=== PATIENT | female | born 1940 | race Caucasian/White ===

== ENCOUNTER 2019-01-06 15:27 | Emergency (ER) | payer OTHER ==
[2019-01-06 15:46] VITALS: BMI 23.3
--- NOTE | 2019-01-06 17:10 | CON.GI ---
Consult Consult Specialty:: GI Referred by:: Jagjit - History of Present Illness History of Present Illness: 78 y/o F with history of large hiatal hernia(EGD by [facility]), gastritis, colonic polyps(colon [address] Henning) was admitted with oprogressive anmeia. She also was in the office becasue of severe constipation and abdominal pain. On rectal examination she was noted to a anorectal stricture,> she had a rectal prolapse repair many years ago. She denies melena nad rectal bleeding - Alcohol/Substance Use Hx Alcohol Use: No - Smoking History Smoking history: Never smoked Aproximately how many cigarettes per day: 20 Home Medications - Allergies Allergies/Adverse Reactions: Allergies Allergy/AdvReac Type Severity Reaction Status Date / Time codeine [Codeine] Allergy Intermediate Verified 01/06/19 15:41 - Home Medications Home Medications: Ambulatory Orders Atorvastatin Ca [Lipitor] 40 mg PO HS 11/09/11 Metoprolol Succinate [Toprol XL -] 25 mg PO HS 11/09/11 Norvasc 5 PO AM 11/09/11 Paroxetine HCl [Paxil -] 25 mg PO AM 11/09/11 Ranitidine HCl [Zantac 75] 150 BID 11/09/11 Physical Exam-GI Vital Signs: Vital Signs Temperature 97.8 F 01/06/19 15:42 Pulse Rate 93 H 01/06/19 15:42 Respiratory Rate 17 01/06/19 15:42 Blood Pressure 176/83 H 01/06/19 15:42 O2 Sat by Pulse Oximetry (%) 95 01/06/19 15:42 Constitutional: Yes: Well Nourished Eyes: Yes: Conjunctiva Clear HENT: Yes: Atraumatic Neck: Yes: Supple Cardiovascular: Yes: Regular Rate and Rhythm Respiratory: Yes: Regular ...Palpate: Yes: Soft. No: Firm/Rigid, Guarding, Hepatomegaly, Mass, Pulsatile Mass, Splenomegaly Problem List - Problems (1) Progressive anemia Assessment/Plan: r/o secondary to large paraesophageal hiatal hernia causing occult gi bleeding R> will need surgical consultation with Dr Rangel Protonix 40mg daily Code(s): D64.9 - ANEMIA, UNSPECIFIED (2) Anorectal stricture Assessment/Plan: R> will need surgical consultation on previous FUA has significant fecal impaction,attempted fecal disimpaction in the office was unsuccessful repeat FuA Code(s): K62.4 - STENOSIS OF ANUS AND RECTUM
--- NOTE | 2019-01-06 17:34 | PDOC ---
Attending Attestation - Resident Resident Name: OakleyRonny - ED Attending Attestation I have performed the following: I have examined & evaluated the patient, The case was reviewed & discussed with the resident, I agree w/resident's findings & plan, Exceptions are as noted - HPI HPI: 01/06/19 17:30 78 F with h/o hiatal hernia, gastritis, anemia, presenting to ED with progressively worsening anemia. Per PMD, pt's Hb went from baseline of 10 to 8 recently. Pt reports that she had another blood test yesterday and was called to come to ED today because her Hb had dropped to 5. Pt denies any CP/SOB/ lightheadedness. Denies N/V/D/abdominal pain. Pt recently had severe constipation that is now resolved after using 3 enemas. - Physicial Exam PE: 01/06/19 17:34 "GENERAL: Awake, alert, and fully oriented, in no acute distress. HEAD: No signs of trauma EYES: PERRLA, EOMI, sclera anicteric, conjunctiva clear ENT: Auricles normal inspection, hearing grossly normal, nares patent, oropharynx clear without exudates. Moist mucosa NECK: Nontender, no stepoffs, Normal ROM, supple, no lymphadenopathy, JVD, or masses LUNGS: Breath sounds equal, clear to auscultation bilaterally. No wheezes, and no crackles HEART: Regular rate and rhythm, normal S1 and S2, no murmurs, rubs or gallops ABDOMEN: Soft, nontender, normoactive bowel sounds. No guarding, no rebound. No masses EXTREMITIES: Normal range of motion, no edema. No clubbing or cyanosis. No cords, erythema, or tenderness NEUROLOGICAL: Cranial nerves II through XII intact. 5/5 strength and sensation in all extremities, Normal speech, normal gait, normal cerebellar function SKIN: Warm, Dry, normal turgor, no rashes or lesions noted. - Medical Decision Making 01/06/19 17:34 78 F with worsening anemia on outpt labs. Pt asymptomatic in ED. Will check stool guaiac to r/o GI bleed. - Labs, coags, T&S - GI c/s with Dr. Whyte 01/06/19 18:18 Pt's Hb today is 10, which is improved from previous value of 8.9, at pt's baseline Stool guaiac negative for occult blood. Discussed with Dr. Whyte, who does not recommend any intervention at this time. He recommends upright abdominal X ray and outpt f/u 01/06/19 18:43 XR with no e/o obstruction Pt reassessed - continues to have no complaints. Pt is well appearing, with normal vitals. Clinically stable for DC at this time. I discussed the physical exam findings, ancillary test results and final diagnoses with the patient. I answered all of the patient's questions. The patient was satisfied with the care received and felt comfortable with the discharge plan and treatment plan. The patient agrees to follow up with the primary care physician within 24-72 hours.
[2019-01-06 17:56] LABS: BASO % 1.9 % (0-2.0); HEMATOCRIT 33.2 % (32.4-45.2); HEMOGLOBIN 10.5 GM/dL (10.7-15.3); MCH 23.3 pg (25.7-33.7); MCHC 31.7 g/dl (32.0-36.0); MEAN CELL VOLUME 73.4 fl (80-96); MEAN PLT VOLUME 8.3 fl (7.5-11.1); MONO % 5.4 % (3.8-10.2); NEUT % 68.7 % (42.8-82.8); PLATELET COUNT 287 K/MM3 (134-434); RBC 4.52 M/mm3 (3.60-5.2); RDW 17.4 % (11.6-15.6); WHITE BLOOD COUNT 6.1 K/mm3 (4.0-10.0)
--- NOTE | 2019-01-06 18:17 | PDOC ---
History of Present Illness - General Chief Complaint: Revisit, Lab Variance Stated Complaint: SENT BY PCP // DR RUSSELL Time Seen by Provider: 01/06/19 16:53 History Source: Patient, Spouse ( present at bedside.), Old Records, Primary Care Provider Exam Limitations: No Limitations - History of Present Illness Initial Comments: HPI: 78 y/o female presenting to [facility] ER from home at urging of ASMITA Lilly from Dr. Martinez office for a hemoglobin/hematocrit of 8.9/27.8 from 05 January 2019. On arrival, pt is without acute chief complaint. Denies chest pain, SOB, lightheadedness, syncope, rectal bleeding, or dark stool. Last colonoscopy 5 years ago; unable to recall results. at bedside. Reports does not appear more pale than normal. Discussed case with ASMITA Lilly via telephone. Reports the pts H/H dropped from 13.4 /41.6 in September 2018 to 9.7/31.1 on 02 January 2019 to 8.9/27.8 on 05 January 2019. Was evaluated in clinic by Dr. Whyte, who expressed concern for anorectal stricture, however Dr. Thibodeaux did not appreciate a stricture on his clinical exam. Pt was unable to schedule a colonoscopy as the procedure was declined by her insurance. Pt is unable to tolerate iron supplements secondary to constipation. Prescription was written for ferrous gluconate yesterday. Pt states she has not checked to see if the pharmacy has filled the prescription. Pt is scheduled for a clinic visit with Dr. Marks, supervisor spring up. PCP: Dr. Jagjit Rodriguez Hx: - No h/o of bleeding disorders Social Hx: - Former smoker, quit >20 years ago Medical Hx: - HTN - HLD - Depression / Anxiety - Hiatal hernia - Gastritis - Colonic polyps noted on colonoscopy Dr. Henning in 2013 Past History - Past Medical History Allergies/Adverse Reactions: Allergies Allergy/AdvReac Type Severity Reaction Status Date / Time codeine [Codeine] Allergy Intermediate Verified 01/06/19 15:41 Home Medications: Ambulatory Orders Atorvastatin Ca [Lipitor] 40 mg PO HS 11/09/11 Metoprolol Succinate [Toprol XL -] 25 mg PO HS 11/09/11 Norvasc 5 PO AM 11/09/11 Paroxetine HCl [Paxil -] 25 mg PO AM 11/09/11 Ranitidine HCl [Zantac 75] 150 BID 11/09/11 COPD: No HTN: Yes Hypercholesterolemia: Yes - Immunization History Td Vaccination: Yes Immunization Up to Date: Yes - Suicide/Smoking/Psychosocial Hx Smoking Status: Yes Smoking History: Never smoked Years of Tobacco Use: 30 Number of Cigarettes Smoked Daily: 20 Hx Alcohol Use: No Drug/Substance Use Hx: No Review of Systems - Review of Systems Able to Perform ROS?: Yes Comments:: In addition to that documented in the HPI above, the additional ROS was obtained : Constitutional: Denies fevers or chills Head: Denies vision changes ENMT: Denies sore throat CV: Denies chest pain Resp: Endorses cough for the past week, diagnosed with bronchitis at PCP on Wednesday and started on antibiotics. Denies SOB GI: Denies vomiting or diarrhea : Denies painful urination, dysuria, or hematuria. MSK: Denies recent trauma Skin: Denies new rashes Neuro: Denies new numbness or tingling or weakness Endocrine: Denies polyuria Heme: Denies easy bleeding or bruising *Physical Exam - Vital Signs Last Vital Signs Temp Pulse Resp BP Pulse Ox 97.8 F 93 H 17 176/83 H 95 01/06/19 15:42 01/06/19 15:42 01/06/19 15:42 01/06/19 15:42 01/06/19 15:42 - Physical Exam Comments: Constitutional: Well-developed, well-nourished adult female in no acute distress or obvious discomfort. Found semi-fowlers on hospital bed. Alert and oriented x4. Answered all questions appropriately and completely. Speech was non -labored, non-pressured. Observed walking unassisted through the department without obvious difficulty. Head: Normocephalic. No obvious external signs of trauma. Eyes: Sclerae white. Conjunctiva pink and moist. Ears: Hearing grossly intact. Nose: No nasal discharge. Throat: Oral cavity and pharynx normal. No inflammation, swelling, exudate, or lesions. [place] sublingual mucosa. Neck: Supple, trachea is midline. Cardiovascular / Chest: Regular rate and regular rhythm. No murmur, rubs, clicks , or gallops. Peripheral pulses: radial pulses full. No pretibial edema. Respiratory: Infrequent coughing. Breathing unlabored. Equal chest rise and fall. Clear to auscultation bilaterally. No stridor, no wheezing, no rhonchi. Gastrointestinal: abdomen is soft, non-tender, non-distended. Neuro: Alert and oriented. Moving all four extremities spontaneously. Gait normal. Skin: [place], warm, dry, and intact. No bruising, rashes, or other lesions. Psych: Affect: appropriate. Mood: normal. Female Rectal: Good sphincter tone with nonbleeding skin tag at 6 oclock. No perineal lesions. Minimal amount of stool in the rectal vault. Stool on gloved finger light brown. No dami blood or melena. SFOB card negative. RN chaperoned exam. ED Treatment Course - LABORATORY CBC & Chemistry Diagram: 01/06/19 17:42 01/06/19 17:42 - ADDITIONAL ORDERS Additional order review: 01/06/19 01/06/19 01/06/19 17:42 17:42 17:42 PT with INR 12.90 INR 1.09 PTT (Actin FS) 30.5 Sodium 139 Potassium 4.2 Chloride 108 H Carbon Dioxide 25 Anion Gap 6 L BUN 20 H Creatinine 0.9 Creat Clearance w eGFR 60.88 Random Glucose 99 Calcium 9.6 Total Bilirubin 0.4 AST 21 ALT 21 Alkaline Phosphatase 95 LD Total 208 Total Protein 8.1 Albumin 4.1 Stool Occult Blood Blood Type Antibody Screen 01/06/19 01/06/19 17:42 17:34 PT with INR INR PTT (Actin FS) Sodium Potassium Chloride Carbon Dioxide Anion Gap BUN Creatinine Creat Clearance w eGFR Random Glucose Calcium Total Bilirubin AST ALT Alkaline Phosphatase LD Total Total Protein Albumin Stool Occult Blood Negative Blood Type O POSITIVE Antibody Screen Negative 01/06/19 17:42 RBC 4.52 MCV 73.4 L MCHC 31.7 L RDW 17.4 H MPV 8.3 Neutrophils % 68.7 Lymphocytes % 22.0 Monocytes % 5.4 Eosinophils % 2.0 Basophils % 1.9 - RADIOLOGY Radiology Studies Ordered: Category Date Time Status ABDOMEN FLAT & UPRIGHT [RAD] Stat Radiology 01/06/19 18:09 Ordered *DC/Admit/Observation/Transfer Diagnosis at time of Disposition: Progressive anemia Qualifiers: Anemia type: other cause Other causes of anemia: other cause, not classified Qualified Code(s): D64.89 - Other specified anemias - Discharge Dispostion Disposition: HOME Condition at time of disposition: Good Decision to Admit order: No - Referrals Referrals: Annabi,Iyad, MD [Primary Care Provider] - Nicolás Whyte MD [Staff Physician] - King Diaz [Staff Physician] - Darrius Marks MD [Staff Physician] - - Patient Instructions Additional Instructions: You were seen today for a low hemoglobin. Your repeated hemoglobin level today was improved from the level measured yesterday. Your stool tested negative for occult blood. The rest of your blood work was normal. Your xray did not show signs of GI obstruction. Start taking the medication prescribed by Dr. Martinez office yesterday. Dr. Whyte was advised of todays results and is comfortable with the plan for you to go home. He would like you to follow up with Dr. Diaz, a general surgeon. The number is included in the packet. You will need to call to make an appointment. You should follow up with your previously scheduled appointment with the supervisor spring up Dr. Marks. You should also follow up with Dr. Whyte and Dr. Danielson. A copy of todays results are attached to this packet. Take it to the appointments so your doctors can review them. Go to the nearest emergency department if your condition worsens or you feel like you need additional emergency evaluation. Print Language: COMORAN - Post Discharge Activity
[2019-01-06 18:21] LABS: ALBUMIN 4.1 g/dl (3.4-5.0); ALK PHOS 95 U/L (45-117); ANION GAP 6 MMOL/L (8-16); BILIRUBIN,TOTAL 0.4 mg/dL (0.2-1); BLOOD UREA NITROGEN 20 mg/dL (7-18); CALCIUM 9.6 mg/dL (8.5-10.1); CHLORIDE 108 mmol/L (98-107); CO2 25 mmol/L (21-32); CREATININE 0.9 mg/dL (0.55-1.3); GLUCOSE,RANDOM 99 mg/dL (74-106); LDH 208 U/L (84-246); POTASSIUM 4.2 mmol/L (3.5-5.1); SGOT/AST 21 U/L (15-37); SGPT/ALT 21 U/L (13-61); SODIUM 139 mmol/L (136-145); TOT PROT 8.1 g/dl (6.4-8.2)
[2019-01-06 18:28] LABS: RETICULOCYTES 1.43 % (0.5-1.5)
[2019-01-06 18:35] LABS: INR 1.09 (0.83-1.09); PROTHROMBIN TIME (PATIENT) 12.9 SEC (9.7-13.0)
[2019-01-06 19:02] VITALS: BP 152/71; PULSE 88; TEMP 98.1
--- NOTE | 2019-01-07 11:37 | EKG ---
Test Reason : Blood Pressure : / mmHG Vent. Rate : 074 BPM Atrial Rate : 074 BPM P-R Int : 130 ms QRS Dur : 082 ms QT Int : 392 ms P-R-T Axes : 037 031 029 degrees QTc Int : 435 ms NORMAL SINUS RHYTHM NORMAL ECG NO PREVIOUS ECGS AVAILABLE Confirmed by BERNARDO CAGLE MD ([id number]) on 01/07/2019 11:36:38 AM Referred By: Confirmed By:BERNARDO CAGLE MD
== END 2019-01-06 19:19 | disposition home or self-care (01) ==
LOC: JER 15:27
DX: D64.89 Other specified anemias (principal); K62.4 Stenosis of anus and rectum; K44.9 Diaphragmatic hernia without obstruction or gangrene; I10 Essential (primary) hypertension; E78.00 Pure hypercholesterolemia, unspecified; F41.8 Other specified anxiety disorders; F32.9 Major depressive disorder, single episode, unspecified
CPT/HCPCS: 36415; 74019-TC-FY; 80053; 82272; 83615; 85025; 85044; 85610; 85730; 86850; 86900; 86901; 93005; 93010; 99282-25

== ENCOUNTER 2020-03-26 16:32 | Inpatient (IN) | payer OTHER ==
--- NOTE | 2020-03-26 16:40 | PDOC ---
Rapid Medical Evaluation Time Seen by Provider: 03/26/20 16:37 Medical Evaluation: Allergies Allergy/AdvReac Type Severity Reaction Status Date / Time codeine [Codeine] Allergy Intermediate Verified 03/26/20 16:35 03/26/20 16:37 I have performed a brief in-person evaluation of this patient. The patient presents with a chief complaint of:lower abd pain since yesterday, no change in BM, dysuria, n/v/f/c. Seen by Dr Danielson this am who sent pt to ED to r/o ? appy. H/o HTN, s/p remote procedure for rectal prolapse Pertinent physical exam findings:stable, NAD I have ordered the following:labs The patient will proceed to the ED for further evaluation. Discharge Disposition - Diagnosis Abdominal pain Qualifiers: Abdominal location: lower abdomen, unspecified Qualified Code(s): R10.30 - Lower abdominal pain, unspecified - Referrals - Patient Instructions - Post Discharge Activity
--- NOTE | 2020-03-26 16:59 | PDOC ---
History of Present Illness - General Chief Complaint: Pain, Acute Stated Complaint: abd pain Time Seen by Provider: 03/26/20 16:37 Past History - Medical History Allergies/Adverse Reactions: Allergies Allergy/AdvReac Type Severity Reaction Status Date / Time codeine [Codeine] Allergy Intermediate Verified 03/26/20 16:35 Home Medications: Ambulatory Orders Atorvastatin Ca [Lipitor] 40 mg PO HS 11/09/11 Metoprolol Succinate [Toprol XL -] 25 mg PO HS 11/09/11 Norvasc 5 PO AM 11/09/11 Paroxetine HCl [Paxil -] 25 mg PO AM 11/09/11 Ranitidine HCl [Zantac 75] 150 BID 11/09/11 COPD: No GI Disorders: Yes (HERNIA) HTN: Yes Hypercholesterolemia: Yes - Immunization History Td Vaccination: Yes Immunization Up to Date: Yes - Psycho-Social/Smoking History Smoking Status: Yes Smoking History: Never smoked Years of Tobacco Use: 30 Number of Cigarettes Smoked Daily: 20 - Substance Abuse Hx (Audit-C & DAST Scrn) How often the patient has a drink containing alcohol: Never Score: In Men: 4 or > Positive; In Women: 3 or > Positive: 0 Screen Result (Pos requires Nsg. Audit-10AR): Negative In the last yr the pt used illegal drug/Rx for NonMed reason: No Score: Yes response is considered Positive: 0 Screen Result (Positive result requires Nsg. DAST-10): Negative *Physical Exam - Vital Signs Last Vital Signs Temp Pulse Resp BP Pulse Ox 98.5 F 95 H 18 128/75 100 03/26/20 16:36 03/26/20 16:36 03/26/20 16:36 03/26/20 16:36 03/26/20 16:36 ED Treatment Course - LABORATORY CBC & Chemistry Diagram: 03/26/20 17:13 03/26/20 17:13 - RADIOLOGY Radiology Studies Ordered: Category Date Time Status ABDOMEN & PELVIS CT WITH CONTR [CT] Stat CT Scan 03/26/20 16:57 Ordered ABDOMEN US -LIMITED [US] Stat Ultrasound 03/26/20 16:58 Ordered Medical Decision Making - Medical Decision Making 03/26/20 17:00 HPI: 79yo F hx HTN, HLD, hiatal hernia (s/p repair), gastritis, and colonic polyps sent by PCP Annabi for acute abdomen r/o appendicitis. Pt c/o 2-3 hours of sharp stabbing constant gradual onset nonradiating severe RLQ pain worse with movement, no hx similar sx. Denies N/V, F/C, D/C, urinary sx, vaginal sx, SOB, CP, URI-like sx. LBM this AM. Last PO intake yesterday. LMP 20 years ago. Pt also c/o bilateral upper quadrants mild pressure type pain x24 hours worse with eating, associated with increased gas, intermittent x few months, worked up with CT scan 2 weeks ago. Pt states that they found something (unknown) in CT scan and she was told to get a PET scan (scheduled for Wednesday04/01/20). ROS: Constitutional: Negative for chills, fever, fatigue, diaphoresis. HENT: Negative for sore throat, rhinorrhea, congestion. Eyes: Negative for visual disturbance. Respiratory: Negative for shortness of breath, cough, and wheezing. Cardiovascular: Negative for chest pain, palpitations, and leg swelling. Gastrointestinal: Positive for abdominal pain, poor PO intake. Negative for blood in stool, constipation, diarrhea, nausea, and vomiting. Genitourinary: Negative for dysuria, flank pain, and hematuria. Musculoskeletal: Negative for myalgias, back pain, and neck pain. Skin: Negative for rash. Neurological: Negative for light-headedness, dizziness, vertigo, syncope, weakness, numbness and headaches. Psychiatric/Behavioral: Negative for behavioral problems and confusion. PE: Gen: Alert, NAD, uncomfortable-appearing. HEENT: PERRL, EOMI, MMM, NCAT. No conjunctival pallor. Sclera are non-icteric. CV: Regular rate and rhythm. No murmurs, rubs, or gallops. PULM: No resp distress. CTAB, no wheezes, rales, or rhonchi. ABD: soft, severe RLQ TTP w/rebound tenderness and guarding, slight RUQ TTP, ND, no CVA tenderness. BACK: No TTP of c/t/l-spine. No step-offs or deformities. MSK: No bony deformities. 2+ pulses in all extremities. NEURO: AAOx3. PERRL. No gross CN deficits. Strength and sensation grossly intact throughout. EXTREMITIES: No cyanosis. No clubbing. No edema. No calf tenderness. PSYCH: Normal mood and thought pattern. SKIN: Warm and dry. Normal capillary refill. No rashes. No jaundice. MDM: 79yo F hx HTN, HLD, hiatal hernia (s/p repair), gastritis, and colonic polyps sent by PCP Jagjit for acute abdomen r/o appendicitis. Hemodynamically stable, afebrile, acute abdomen. Ddx: high concern appendicitis. Also consider colitis, diverticulitis, cholelithiasis/cystitis, SBO, mesenteric ischemia, gastritis, malignancy, bowel perforation, metabolic derangement, anemia, infection. -EKG -CXR to eval for free air -CBC,CMP,Lact,Coags,T&S,UA/UC -Pain management: ofirmev. Pt refuses morphine. -IVF -NPO -Dispo: pending w/u and reassessment, likely admit 03/26/20 17:37 Due to high concern due to acute abdomen and pt's lack of hx of kidney issues, will obtain CTAP prior to labs. Pt understands risks and consents. Form signed by both patient and I. 03/26/20 18:28 Labs reviewed. WBC 14 CXR reviewed: no acute pathology CTAP reviewed: acute appendicitis -Zosyn 4.5 -Consult for Dr Thibodeaux placed -[employer] covering for Dr Danielson paged overhead to inform of dx and ask about surgeon preference 03/26/20 18:[address] Thibodeaux that he is not online journalist and not available. No call from [employer] covering for Jagjit yet. -Consult and call placed for online journalist surgeon Dr Suggs 03/26/20 18:56 Spoke with online journalist surgeon Dr Santos - recommend Zosyreji, NPO, will do surgery pending negative covid. Admit 03/26/20 19:27 Pt signed out to admitting [employer] Mark. Discharge - Discharge Information Problems reviewed: Yes Clinical Impression/Diagnosis: Acute appendicitis Abdominal pain Qualifiers: Abdominal location: lower abdomen, unspecified Qualified Code(s): R10.30 - Lower abdominal pain, unspecified Appendicitis Qualifiers: Appendicitis type: acute appendicitis Acute appendicitis type: other Qualified Code(s): K35.890 - Other acute appendicitis without perforation or gangrene Condition: Stable - Admission Yes - Follow up/Referral Referrals: Irma Danielson MD [Primary Care Provider] - - Patient Discharge Instructions - Post Discharge Activity
[2020-03-26] MEDS ORDERED: ACETAMINOPHEN 1000 MG/100 ML VIAL (NON FORMULARY) IVPB ONE (17:00)
[2020-03-26] MEDS ORDERED: SODIUM CHLORIDE 0.9% 500 ML INFUS.BAG IV ONE (17:00)
[2020-03-26] MEDS ORDERED: ACETAMINOPHEN INJECTION 100 ML IVPB ONE (17:06)
[2020-03-26 17:45] LABS: BASO % 0.6 % (0-2.0); EOS % 0.1 % (0-4.5); HEMATOCRIT 41.7 % (32.4-45.2); LYMPH % 6.9 % (8-40); MCH 30.9 pg (25.7-33.7); MCHC 33.5 g/dl (32.0-36.0); MEAN CELL VOLUME 92.3 fl (80-96); MEAN PLT VOLUME 10.3 fl (7.5-11.1); NEUT % 83.4 % (42.8-82.8); PLATELET COUNT 196 K/MM3 (134-434); RBC 4.51 M/mm3 (3.60-5.2); RDW 13.2 % (11.6-15.6)
--- NOTE | 2020-03-26 17:49 | PDOC ---
Documentation entered by Genoveva Juan SCRIBE, acting as scribe for Carmen Alegria MD. Carmen Alegria MD: This documentation has been prepared by the scribe, Genoveva Thacker SCRIBE, under my direction and personally reviewed by me in its entirety. I confirm that the documentation accurately reflects all work, treatment, procedures, and medical decision making performed by me. Attending Attestation - Resident Resident Name: Jeri Wesley - ED Attending Attestation I have performed the following: I have examined & evaluated the patient, The case was reviewed & discussed with the resident, I agree w/resident's findings & plan, Exceptions are as noted - HPI HPI: 03/26/20 17:15 The patient is a 79 year old female with a significant PMH of HTN s/p remote procedure for rectal prolapse who presents to the ED sent by PCP Dr. Danielson for evaluation of 1 day of lower abdominal pain. The patient denies change in bowel movements. Denies n/v. States never had this before. The patient denies chest pain, shortness of breath, headache and dizziness. Denies fever, chills, nausea, vomiting, diarrhea and constipation. Denies dysuria, frequency, urgency and hematuria. Allergies: Codeine Social history: No reported hx of tobacco use, alcohol use or illicit drug use. PCP: Jagjit - Physicial Exam PE: 03/26/20 17:44 General: uncomfortable appearing Abdomen: soft, +RLQ and suprapubic ttp, +guarding, no rebound, no palpable masses Neuro: speech fluent, face symmetric, responds appropriately to questions, no focal deficits - Medical Decision Making 03/26/20 17:46 79 yo F with RLQ pain, possible appy vs. mass vs. obstruction vs. lower suspicion for acute choley or diverticulitis. Plan: -labs -cxr -CT a/p -pain control as needed -reassess This clinical encounter is taking place during a federal and state health care emergency attributable to the novel Ha Virus pandemic. The [employer] of the Department of Health and Human Services has declared, pursuant to the Public Health Service Act 319F-3 (42 U.S.C. 247d-6d), that a covered persons activities related to medical countermeasures against COVID-19 will be immune from liability under Federal and State law. 03/26/20 18:45 CT a/p with findings consistent with appy. Will consult surgery and admit patient. Patient given zosyn. Discharge - Discharge Information Problems reviewed: Yes Clinical Impression/Diagnosis: Abdominal pain Qualifiers: Abdominal location: lower abdomen, unspecified Qualified Code(s): R10.30 - Lower abdominal pain, unspecified Appendicitis Qualifiers: Appendicitis type: acute appendicitis Acute appendicitis type: other Qualified Code(s): K35.890 - Other acute appendicitis without perforation or gangrene; K35.89 - Other acute appendicitis - Follow up/Referral Referrals: Irma Danielson MD [Primary Care Provider] - - Patient Discharge Instructions - Post Discharge Activity
[2020-03-26 17:58] LABS: INR 1.04 (0.83-1.09); PROTHROMBIN TIME (PATIENT) 12.3 SEC (9.7-13.0)
[2020-03-26 18:01] LABS: ACTIVATED PTT 29.4 SECONDS (25.2-36.5)
[2020-03-26] MEDS ORDERED: PIPERACILLIN/TAZOB 4.5 GM 4.5 GM in DEXTROSE 5%-WATER 100 ML IVPB ONE (18:14)
[2020-03-26 18:15] LABS: ALBUMIN 3.9 g/dl (3.4-5.0); BILIRUBIN,TOTAL 0.6 mg/dL (0.2-1); BLOOD UREA NITROGEN 18.8 mg/dL (7-18); CALCIUM 9.3 mg/dL (8.5-10.1); CREATININE 0.9 mg/dL (0.55-1.3); POTASSIUM 4.1 mmol/L (3.5-5.1); TOT PROT 7.1 g/dl (6.4-8.2)
[2020-03-26] MEDS ORDERED: PIPERACILLIN/TAZOB 4.5 GM 4.5 GM/100 ML BAG IVPB ONE (18:39)
--- NOTE | 2020-03-26 19:30 | HP ---
Admitting History and Physical - Primary Care Physician PCP: Irma Danielson - Admission Chief Complaint: Abdominal Pain History of Present Illness: This is a 79 y/o female with a past medical history of Hypertension, Hypercholesterolemia, Hiatal Hernia s/p repair, Gastritis, Colonic Polyps. Who presents to the ED with Right sided abdominal pain. Patient reports having sharp intermittent pain that worsens with movement. She reports having abdominal pain in the past which would dissipate. Patient reports having nausea and feeling bloated. Patient denies fever, chills, cough, dizziness, WEI, SOB, CP, palpitations, V/D, melena, hematochezia, hematuria, dysuria. Patient denies sick contacts or recent travel. History Source: Patient Limitations to Obtaining History: No Limitations - Past Medical History Cardiovascular: Yes: HTN, Hyperlipdemia Gastrointestinal: Yes: Constipation, Gastritis, Other (Hernia) - Past Surgical History Past Surgical History: Yes: Hernia Repair - Smoking History Smoking history: Former smoker Have you smoked in the past 12 months: No Aproximately how many cigarettes per day: 20 - Alcohol/Substance Use Hx Alcohol Use: No History of Substance Use: reports: None - Social History Usual Living Arrangement: Yes: With Spouse ADL: Independent Occupation: Part-time [employer] Specialist History of Recent Travel: No Home Medications - Allergies Allergies/Adverse Reactions: Allergies Allergy/AdvReac Type Severity Reaction Status Date / Time codeine [Codeine] Allergy Intermediate Verified 03/26/20 16:35 - Home Medications Home Medications: Ambulatory Orders Atorvastatin Ca [Lipitor] 40 mg PO HS 11/09/11 Metoprolol Succinate [Toprol XL -] 25 mg PO HS 11/09/11 Norvasc 5 PO AM 11/09/11 Paroxetine HCl [Paxil -] 25 mg PO AM 11/09/11 Ranitidine HCl [Zantac 75] 150 BID 11/09/11 Family Medical History Family Hx Coronary Artery Disease: Father Review of Systems - Review of Systems Constitutional: reports: Loss of Appetite Eyes: reports: No Symptoms HENT: reports: No Symptoms Neck: reports: No Symptoms Cardiovascular: reports: No Symptoms Respiratory: reports: No Symptoms Gastrointestinal: reports: Abdominal Pain, Bloating, Nausea Genitourinary: reports: No Symptoms Breasts: reports: No Symptoms Reported Musculoskeletal: reports: No Symptoms Integumentary: reports: No Symptoms Neurological: reports: No Symptoms Endocrine: reports: No Symptoms Hematology/Lymphatic: reports: No Symptoms Psychiatric: reports: No Symptoms Pain Intensity: 8 Physical Examination Vital Signs: Vital Signs Temperature 98.5 F 03/26/20 16:36 Pulse Rate 95 H 03/26/20 16:36 Respiratory Rate 18 03/26/20 16:36 Blood Pressure 128/75 03/26/20 16:36 O2 Sat by Pulse Oximetry (%) 100 03/26/20 16:36 Constitutional: Yes: Mild Distress Eyes: Yes: WNL, Conjunctiva Clear, EOM Intact, PERRL HENT: Yes: Atraumatic, Normocephalic, Other (dry mucousa) Neck: Yes: WNL, Supple, Trachea Midline Cardiovascular: Yes: Regular Rate and Rhythm, S1, S2 Respiratory: Yes: WNL, Regular, CTA Bilaterally Gastrointestinal: Yes: Soft, Hypoactive Bowel Sounds, Tenderness, Tenderness, Rebound (RLQ) ...Rectal Exam: Yes: Deferred Renal/: Yes: WNL Breast(s): Yes: WNL Musculoskeletal: Yes: WNL Extremities: Yes: WNL Edema: No Peripheral Pulses WNL: Yes Integumentary: Yes: WNL Neurological: Yes: WNL, Alert, Oriented, Cran Nerves II-XII Intact ...Motor Strength: WNL Psychiatric: Yes: WNL, Alert, Oriented Labs: CBC, BMP 03/26/20 17:13 03/26/20 17:13 Laboratory Results - last 24 hr 03/26/20 03/26/20 03/26/20 17:13 17:13 17:13 WBC 14.0 H RBC 4.51 Hgb 14.0 Hct 41.7 D MCV 92.3 MCH 30.9 D MCHC 33.5 RDW 13.2 D Plt Count 196 D MPV 10.3 D Absolute Neuts (auto) 11.7 H Neutrophils % 83.4 H D Lymphocytes % 6.9 L D Monocytes % 9.0 Eosinophils % 0.1 D Basophils % 0.6 Nucleated RBC % 0 PT with INR INR PTT (Actin FS) Sodium 140 Potassium 4.1 Chloride 106 Carbon Dioxide 27 Anion Gap 7 L BUN 18.8 H Creatinine 0.9 Est GFR (CKD-EPI)AfAm 71.48 Est GFR (CKD-EPI)NonAf 61.67 Random Glucose 91 Lactic Acid 0.8 Calcium 9.3 Total Bilirubin 0.6 AST 13 L ALT 18 Alkaline Phosphatase 104 Total Protein 7.1 Albumin 3.9 Lipase 127 Blood Type Antibody Screen 03/26/20 03/26/20 17:13 17:13 WBC RBC Hgb Hct MCV MCH MCHC RDW Plt Count MPV Absolute Neuts (auto) Neutrophils % Lymphocytes % Monocytes % Eosinophils % Basophils % Nucleated RBC % PT with INR 12.30 INR 1.04 PTT (Actin FS) 29.4 Sodium Potassium Chloride Carbon Dioxide Anion Gap BUN Creatinine Est GFR (CKD-EPI)AfAm Est GFR (CKD-EPI)NonAf Random Glucose Lactic Acid Calcium Total Bilirubin AST ALT Alkaline Phosphatase Total Protein Albumin Lipase Blood Type O POSITIVE Antibody Screen Negative Intake & Output 03/23/20 03/24/20 03/25/20 03/26/20 23:59 23:59 23:59 23:59 Weight 58.513 kg Imaging - Results Chest X-ray: Image Reviewed Cat Scan: Report Reviewed, Image Reviewed EKG: Image Reviewed Problem List - Problems (1) Acute appendicitis Assessment/Plan: CTAP image, report- Acute Appendicitis without abscess Reynolds Score 7 +leukocytosis with L- shift Appreciate Surgical consult- ED resident spoke with Dr Ashley Montgomery initiated, will continue Appreciate ID consult Monitor CBC, CMP Monitor vitals Continue IVF NPO Code(s): K35.80 - UNSPECIFIED ACUTE APPENDICITIS (2) Abdominal pain Assessment/Plan: Likely secondary to Acute Appendicitis See above Code(s): R10.9 - UNSPECIFIED ABDOMINAL PAIN Qualifiers: Abdominal location: lower abdomen, unspecified Qualified Code(s): R10.30 - Lower abdominal pain, unspecified (3) Gastritis Assessment/Plan: stable PPI Code(s): K29.70 - GASTRITIS, UNSPECIFIED, WITHOUT BLEEDING (4) HTN (hypertension) Assessment/Plan: stable Monitor BP Continue Metoprolol with parameters Monitor renal function Code(s): I10 - ESSENTIAL (PRIMARY) HYPERTENSION (5) HLD (hyperlipidemia) Assessment/Plan: stable Hold Lipitor for now secondary to Acute AP Code(s): E78.5 - HYPERLIPIDEMIA, UNSPECIFIED (6) Anxiety Assessment/Plan: stable Continue Paxil Code(s): F41.9 - ANXIETY DISORDER, UNSPECIFIED Assessment/Plan This is a 79 y/o female with a past medical history of Hypertension, Hypercholesterolemia, Hiatal Hernia s/p repair, Gastritis, Colonic Polyps. Admitted to [facility] for Acute Appendicitis for further evaluation of their emergent condition. Plan: See Problem List FEN D50.45%NS@75ml/hr Replete lytes prn NPO DVT ppx OOB SCDs Heparin SQ Dispo: Requires Inpatient Care Visit type - Emergency Visit Emergency Visit: Yes ED Registration Date: 03/26/20 Care time: The patient presented to the Emergency Department on the above date and was hospitalized for further evaluation of their emergent condition. - New Patient This patient is new to me today: Yes Date on this admission: 03/26/20 - Critical Care Critical Care patient: No
[2020-03-26] MEDS: DEXTROSE 5%-0.45% SALINE 1,000 ML IV SCH (20:38)
[2020-03-26] MEDS ORDERED: ACETAMINOPHEN 1000 MG/100 ML VIAL (NON FORMULARY) IVPB PRN (23:00)
[2020-03-27] MEDS ORDERED: DEXTROSE 5%-WATER 100 ML IVPB ONE (02:32)
[2020-03-27] MEDS ORDERED: PIPERACILLIN/TAZOBACTAM 4.5 GM VIAL IVPB ONE (02:32)
[2020-03-27 02:37] LABS: EPI CELLS 5 /uL (0-25.1); HYALINE CASTS 0 /uL (0-3.1); URINE APPEARANCE CLEAR; URINE BACTERIA 17 /uL (0-1359); URINE BILIRUBIN NEGATIVE (NEGATIVE); URINE COLOR YELLOW; URINE GLUCOSE (UA) NEGATIVE (NEGATIVE); URINE KETONE NEGATIVE (NEGATIVE); URINE LEUK ESTERASE 1+ (NEGATIVE); URINE NITRITE NEGATIVE (NEGATIVE); URINE PROTEIN NEGATIVE (NEGATIVE); URINE RBC 3 /uL (0-23.9); URINE UROBILINOGEN 0.2 mg/dL (0.2-1.0); URINE WBC 67 /uL (0-25.8)
[2020-03-27] MEDS ORDERED: PIPERACILLIN/TAZOB 4.5 GM 4.5 GM in DEXTROSE 5%-WATER 100 ML IVPB SCH (03:00)
[2020-03-27 03:04] VITALS: BMI 22.8
[2020-03-27 07:47] LABS: BASO % 0.9 % (0-2.0); EOS % 1.4 % (0-4.5); HEMATOCRIT 36.7 % (32.4-45.2); HEMOGLOBIN 12.3 GM/dL (10.7-15.3); LYMPH % 16.6 % (8-40); MCH 30.9 pg (25.7-33.7); MCHC 33.5 g/dl (32.0-36.0); MEAN PLT VOLUME 10.6 fl (7.5-11.1); MONO % 9.1 % (3.8-10.2); PLATELET COUNT 171 K/MM3 (134-434); RBC 3.99 M/mm3 (3.60-5.2); RDW 13.4 % (11.6-15.6); WHITE BLOOD COUNT 8.7 K/mm3 (4.0-10.0)
[2020-03-27 08:05] LABS: BLOOD UREA NITROGEN 11.8 mg/dL (7-18); POTASSIUM 3.8 mmol/L (3.5-5.1)
[2020-03-27 08:06] LABS: BILIRUBIN,TOTAL 1.1 mg/dL (0.2-1); CALCIUM 8.4 mg/dL (8.5-10.1); TOT PROT 5.8 g/dl (6.4-8.2)
--- NOTE | 2020-03-27 09:06 | PN ---
Progress Note, Physician - Current Medication List Current Medications: Active Medications Acetaminophen (Ofirmev Injection -) 650 mg IVPB Q6H PRN PRN Reason: PAIN LEVEL 6-10 Last Admin: 03/27/20 01:50 Dose: 650 mg Documented by: Dextrose/Sodium Chloride (D5-1/2ns -) 1,000 mls @ 75 mls/hr IV ASDIR KIP Last Admin: 03/26/20 20:38 Dose: 75 mls/hr Documented by: Paroxetine HCl (Paxil -) 20 mg PO DAILY [facility] - Objective Vital Signs: Vital Signs Temperature 98.7 F 03/27/20 05:23 Pulse Rate 80 03/27/20 05:23 Respiratory Rate 18 03/27/20 05:23 Blood Pressure 116/61 03/27/20 05:23 O2 Sat by Pulse Oximetry (%) 98 03/27/20 02:53 Cardiovascular: Yes: Regular Rate and Rhythm Respiratory: Yes: Regular, CTA Bilaterally Gastrointestinal: Yes: Tenderness (RLQ WITH GUARDING) Labs: CBC, BMP 03/27/20 07:05 03/27/20 07:05 INR, PTT INR 1.04 (0.83-1.09) 03/26/20 17:13 Problem List - Problems (1) Abdominal pain Assessment/Plan: IV ABX SURGICAL AND ID CONSULTS Code(s): R10.9 - UNSPECIFIED ABDOMINAL PAIN Qualifiers: Abdominal location: lower abdomen, unspecified Qualified Code(s): R10.30 - Lower abdominal pain, unspecified (2) Acute appendicitis Assessment/Plan: ABOVE AWAIT COVID THEN OR Code(s): K35.80 - UNSPECIFIED ACUTE APPENDICITIS (3) HLD (hyperlipidemia) Assessment/Plan: LIPITOR Code(s): E78.5 - HYPERLIPIDEMIA, UNSPECIFIED (4) HTN (hypertension) Assessment/Plan: MONITOR ON LOPRESSOR Code(s): I10 - ESSENTIAL (PRIMARY) HYPERTENSION
[2020-03-27] MEDS: PARoxetine HCL 20 MG TABLET PO SCH (09:22)
--- NOTE | 2020-03-27 09:35 | PN ---
Progress Note (short form) - Note Progress Note: ID consult dictated imp/reccd 79 yo female admitted with RLQ pain that began yesterday, sharp no fevers or chills no nausea or vomting +BM yesterday reports vague abdominal discomfort (all over abdomen) for last several weeks ct scan with appendicitis appendicitis- cultures pending covid pcr pending continue zosyn awaiting surgical evaluation Hiatal hernia- noted infrarenal aortic aneurysm- per PMD d/w dr jacob Problem List - Problems (1) Acute appendicitis Code(s): K35.80 - UNSPECIFIED ACUTE APPENDICITIS
--- NOTE | 2020-03-27 09:51 | PN ---
Progress Note (short form) - Note Progress Note: surgery 79f with htn and previous hiatal hernia repair admitted for uncomplicated appendicitis. wbc normalized on abx. no fever. awaiting results of covid testing sent last night. will proceed with surgery vs cont medical management based on results.
[2020-03-27] MEDS ORDERED: DEXTROSE 5%-WATER - 50 ML IVPB ONE ×3 (10:15→21:00)
[2020-03-27] MEDS ORDERED: PIPERACILLIN/TAZOBACTAM 3.375 GM VIAL IVPB ONE ×3 (10:15→21:00)
[2020-03-27] MEDS: PIPERACILLIN/TAZOB 3.375 GM 3.375 GM in DEXTROSE 5%-WATER - 50 ML IVPB SCH ×3 (10:21→21:47)
--- NOTE | 2020-03-27 10:46 | CONS ---
DATE OF CONSULTATION: DATE OF DICTATION: 03/27/2020 HISTORY OF PRESENT ILLNESS: This is a 79-year-old woman admitted with right lower quadrant pain that began yesterday. It was very sharp in nature. She reports that for the last 2 or 3 weeks she has had some vague abdominal discomfort which she was concerned was perhaps attributable a prior hernia repair that she had had about 6 years ago. She has not had any fevers or chills. She has not had any nausea, vomiting. She had a bowel movement yesterday. She had an appointment to see her PMD yesterday afternoon, was noted there to have point tenderness in her right lower quadrant, referred to the ER where she had a CAT scan consistent with appendicitis. She was noted to have a white count of 14,000 as well. I am asked to see her for antibiotic recommendations. This morning she reports improvement in her pain. She says unless the area is touched, she is much more comfortable, and she was started on piperacillin/tazobactam overnight. There is no history of any recent travel. 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 She denies fevers, chills. She has no respiratory symptoms. ALLERGIES: She is allergic to CODEINE. She reports she has difficulty with pain medications. They make her feel ill. PAST MEDICAL HISTORY: Notable for hypertension, hyperlipidemia. PAST SURGICAL HISTORY: Notable for repair of rectal prolapse and hernia repair. SOCIAL HISTORY: She stopped smoking many, many years ago, at least 20. No history of any substance use. She is . 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 MEDICATIONS: Medications at home include atorvastatin, metoprolol, Norvasc, Paxil, and Zantac. FAMILY HISTORY: Notable for coronary artery disease in her father. REVIEW OF SYSTEMS: She has had this 3 weeks of this abdominal discomfort. She has not had any urinary symptoms. Last time she had a UTI was in her 30s. She has no respiratory symptoms. She has no chest pain, and she has no dysuria. PHYSICAL EXAMINATION: General: She is awake and alert. Vital Signs: Temperature is 98.7. Pulse is 80, blood pressure 116/61. Respiratory rate is 18. She is saturating 98% on room air. HEENT: She is normocephalic. Her eyes are anicteric. Neck: Supple. Lungs: Clear to auscultation. Heart: Regular rate and rhythm. Abdomen: Soft. She has point tenderness with rebound in the right lower quadrant. She has bowel sounds. Extremities: Without edema. LABORATORY: White count on admission was 14, this morning was 8.7. Hemoglobin 12.3, platelets of 171. INR is normal. BUN is 11, creatinine 1. LFTs are normal. Albumin is 3. Lactic acid is 0.8. Urinalysis has 1+ leukocytes, and COVID serology is pending. Blood cultures are pending. CAT scan finding is notable for acute appendicitis. She has a large hiatal hernia and a stable infrarenal aortic aneurysm. SUMMARY: This is an elderly woman with acute appendicitis. Cultures are pending. COVID PCR is pending. Continue Zosyn, awaiting surgical evaluation. Note, too, she has a hiatal hernia which may be causing some of her other abdominal symptoms, as well as infrarenal aortic aneurysm. Case was discussed with her primary. Pippa [id number]
--- NOTE | 2020-03-27 13:38 | EKG ---
Test Reason : Blood Pressure : / mmHG Vent. Rate : 090 BPM Atrial Rate : 090 BPM P-R Int : 126 ms QRS Dur : 084 ms QT Int : 370 ms P-R-T Axes : 032 046 051 degrees QTc Int : 452 ms NORMAL SINUS RHYTHM WITH SINUS ARRHYTHMIA POSSIBLE LEFT ATRIAL ENLARGEMENT BORDERLINE ECG WHEN COMPARED WITH ECG OF 06-JAN-2019 17:17, NO SIGNIFICANT CHANGE WAS FOUND Confirmed by MD Mloly, Bronson ([id number]) on 03/27/2020 1:37:59 PM Referred By: Confirmed By:Bronson Barnes MD
--- NOTE | 2020-03-27 13:43 | EKG ---
Test Reason : Blood Pressure : / mmHG Vent. Rate : 078 BPM Atrial Rate : 078 BPM P-R Int : 128 ms QRS Dur : 082 ms QT Int : 394 ms P-R-T Axes : 034 047 032 degrees QTc Int : 449 ms NORMAL SINUS RHYTHM NORMAL ECG WHEN COMPARED WITH ECG OF 26-MAR-2020 17:15, NO SIGNIFICANT CHANGE WAS FOUND Confirmed by MD Molly, Bronson ([id number]) on 03/27/2020 1:42:52 PM Referred By: Ayan MEDRANO Confirmed By:Bronson Barnes MD
--- NOTE | 2020-03-27 19:20 | CONS ---
DATE OF CONSULTATION: 03/27/2020 REASON FOR CONSULTATION: Acute appendicitis. REASON FOR CONSULTATION: This is an emergency consultation requested by the emergency room physician. BRIEF HISTORY: A 79-year-old female who presented to [facility] emergency room yesterday. She had been having intermittent bouts of upper abdominal pain for months. She had more severe pain yesterday in the upper abdomen. Her primary care physician noted she had right lower quadrant tenderness, and she was sent to the emergency room. There she had a CAT scan of the abdomen and pelvis consistent with acute appendicitis. She was started on Zosyn antibiotic. COVID testing was sent. Overnight her white blood cell count improved to 8, and her pain is much improved. She has had no fever. The COVID test is still pending as of 6 p.m. on March 27. Plans had initially been made for surgical management, awaiting results of the test. However, we are still waiting on those results. PAST MEDICAL HISTORY: Patient's past medical history is significant for hypertension, hyperlipidemia, hiatal hernia. PAST SURGICAL HISTORY: Includes a ventral hernia repair. FAMILY HISTORY: Negative for malignancy in the immediate family . SOCIAL HISTORY: Positive for quitting tobacco many years ago. Negative for alcohol. HOME MEDICATIONS: Include: 1. Lipitor. 2. Toprol. 3. Norvasc. 4. Paxil. 5. Zantac. REVIEW OF SYSTEMS: General: Denies fatigue or malaise. Cardiac: Denies chest pain or palpitations. Respiratory: Denies shortness of breath or wheeze. Gastrointestinal: No nausea, no vomiting. Currently no pain. No diarrhea. No recent weight loss. Genitourinary: Denies dysuria. Musculoskeletal: Denies joint pain. Psychiatric: Denies anxiety, depression, or hearing voices. PHYSICAL EXAMINATION: General: This is a thin 79-year-old female in no distress. She is afebrile. HEENT: Head is normocephalic. Sclerae anicteric. Neck: Supple. Chest: Clear. Abdomen: Soft. She has localized right lower lateral quadrant tenderness with rebound without guarding. She has a well-healed surgical scar from her hernia in her upper midline. Extremities: Trace edema. LABORATORY: Review of her laboratory, a white blood cell count is 8 without a shift. Her chemistries are unremarkable except for a mildly elevated total bilirubin. Urinalysis is unremarkable. COVID test is pending. IMAGING: On review of her imaging, she has a CAT scan of her abdomen and pelvis which is consistent with acute appendicitis that is uncomplicated. There is also mention of a possible paraesophageal hernia. ASSESSMENT: A 79-year-old female with abdominal pain with initial leukocytosis, peritoneal findings in right lower quadrant and CAT scan findings consistent with acute appendicitis. Clinically this is acute appendicitis. Patient is currently being treated medically with good results with improvement and normalization of her white blood cell count as well as symptoms. Ideally would proceed with surgery, but it is important that her COVID status is known. Operating in the setting of COVID can increase the risk of respiratory failure as well as thromboembolic events and . If the patient was COVID positive, the best management would be to proceed with medical management, especially since this seems to be working. I had a conversation with the patient and her family members, and they agree. They will continue medical management until the test that was sent yesterday is available with results. If the test is negative, we will proceed with surgery. Continue Zosyn antibiotic. Risks and benefits of surgery were explained to patient in detail. These are including but not limited to the possibility of conversion to open, possible injury to viscera or bladder, possibly blood loss requiring blood transfusion, possibility of future obstruction, possibility of future hernia, possibility of staple line leak, plus a multitude of medical risks including but not limited to cardiac, neurologic, pulmonary, and vascular complications, even . Patient understands these risks, and she is agreeable to surgery if she is negative for the virus. If she is positive, we will continue medical management and make plans for interval appendectomy in 6 to 12 weeks. As far as her what appears to be type II paraesophageal hernia on her CAT scan including majority of the body of the stomach, this also should be addressed electively, as she is at risk of developing volvulus of her stomach and eventual ischemia. She can follow with my partner after discharge. She can be evaluated as a candidate for this repair. DO CANDIDO JONES/[id number]
[2020-03-27] MEDS: DEXTROSE 5%-0.45% SALINE 1,000 ML IV SCH (21:47)
[2020-03-27] MEDS ORDERED: metoPROLOL SUCCINATE 25 MG TAB.SR.24H (FP) PO SCH (22:00)
[2020-03-27] MEDS ORDERED: ATORVASTATIN CA 40 MG TABLET (FP) PO SCH (22:00)
[2020-03-28] MEDS ORDERED: PIPERACILLIN/TAZOBACTAM 3.375 GM VIAL IVPB ONE ×3 (02:19→20:50)
[2020-03-28] MEDS ORDERED: DEXTROSE 5%-WATER - 50 ML IVPB ONE ×3 (02:19→20:51)
[2020-03-28] MEDS: PIPERACILLIN/TAZOB 3.375 GM 3.375 GM in DEXTROSE 5%-WATER - 50 ML IVPB SCH ×4 (02:34→21:35)
--- NOTE | 2020-03-28 08:29 | PN ---
Progress Note, Physician - Current Medication List Current Medications: Active Medications Acetaminophen (Ofirmev Injection -) 650 mg IVPB Q6H PRN PRN Reason: PAIN LEVEL 6-10 Last Admin: 03/27/20 01:50 Dose: 650 mg Documented by: Atorvastatin Calcium (Lipitor -) 40 mg PO HS [facility] Last Admin: 03/27/20 21:47 Dose: 40 mg Documented by: Dextrose/Sodium Chloride (D5-1/2ns -) 1,000 mls @ 75 mls/hr IV ASDIR KIP Last Admin: 03/27/20 21:47 Dose: Not Given Documented by: Piperacillin Sod/Tazobactam (Sod 3.375 gm/ Dextrose) 50 mls @ 100 mls/hr IVPB Q6H-IV KIP; Protocol Last Admin: 03/28/20 02:34 Dose: 100 mls/hr Documented by: Metoprolol Succinate (Toprol Xl -) 25 mg PO HS [facility] Last Admin: 03/27/20 21:47 Dose: 25 mg Documented by: Pantoprazole Sodium (Protonix -) 40 mg PO DAILY KIP Paroxetine HCl (Paxil -) 20 mg PO DAILY [facility] Last Admin: 03/27/20 09:22 Dose: 20 mg Documented by: - Objective Vital Signs: Vital Signs Temperature 98.5 F 03/28/20 04:00 Pulse Rate 78 03/28/20 04:00 Respiratory Rate 20 03/28/20 04:00 Blood Pressure 133/65 03/28/20 04:00 O2 Sat by Pulse Oximetry (%) 95 03/27/20 20:41 Cardiovascular: Yes: Regular Rate and Rhythm Respiratory: Yes: Regular, CTA Bilaterally Gastrointestinal: Yes: Normal Bowel Sounds, Soft, Tenderness Labs: INR, PTT INR 1.04 (0.83-1.09) 03/26/20 17:13 Problem List - Problems (1) Abdominal pain Assessment/Plan: IV ABX SURGICAL AND ID CONSULTS Code(s): R10.9 - UNSPECIFIED ABDOMINAL PAIN Qualifiers: Abdominal location: lower abdomen, unspecified Qualified Code(s): R10.30 - Lower abdominal pain, unspecified (2) Acute appendicitis Assessment/Plan: ABOVE AWAIT COVID THEN OR Code(s): K35.80 - UNSPECIFIED ACUTE APPENDICITIS (3) HLD (hyperlipidemia) Assessment/Plan: LIPITOR Code(s): E78.5 - HYPERLIPIDEMIA, UNSPECIFIED (4) HTN (hypertension) Assessment/Plan: MONITOR ON LOPRESSOR Code(s): I10 - ESSENTIAL (PRIMARY) HYPERTENSION
[2020-03-28 08:33] LABS: BASO % 1.2 % (0-2.0); EOS % 4.1 % (0-4.5); HEMATOCRIT 39.1 % (32.4-45.2); HEMOGLOBIN 13.2 GM/dL (10.7-15.3); LYMPH % 25.8 % (8-40); MCH 31.1 pg (25.7-33.7); MCHC 33.7 g/dl (32.0-36.0); MEAN CELL VOLUME 92.3 fl (80-96); MEAN PLT VOLUME 9.9 fl (7.5-11.1); MONO % 8.3 % (3.8-10.2); NEUT % 60.6 % (42.8-82.8); PLATELET COUNT 173 K/MM3 (134-434); RBC 4.24 M/mm3 (3.60-5.2); RDW 13.1 % (11.6-15.6); WHITE BLOOD COUNT 5.5 K/mm3 (4.0-10.0)
[2020-03-28 09:15] LABS: ALBUMIN 3.3 g/dl (3.4-5.0); BILIRUBIN,TOTAL 0.6 mg/dL (0.2-1); BLOOD UREA NITROGEN 7.8 mg/dL (7-18); CALCIUM 8.8 mg/dL (8.5-10.1); POTASSIUM 3.8 mmol/L (3.5-5.1); TOT PROT 6.3 g/dl (6.4-8.2)
[2020-03-28] MEDS: PARoxetine HCL 20 MG TABLET PO SCH (09:36)
[2020-03-28] MEDS ORDERED: PANTOPRAZOLE 40 MG TABLET PO SCH (10:00)
[2020-03-28] MEDS ORDERED: PROPOFOL 20 ML ONE ×2 (12:52→14:34)
[2020-03-28] MEDS ORDERED: MIDAZOLAM HCL 2 MG/2 ML SINGLE DOSE VIAL ONE (12:53)
[2020-03-28] MEDS ORDERED: ROCURONIUM BROMIDE 100 MG/10 ML VIAL ONE (12:53)
--- NOTE | 2020-03-28 13:48 | OP ---
Operative Note - Note: Operative Date: 03/28/20 Pre-Operative Diagnosis: acute appendicitis Operation: laparoscopic appendectomy, lavage Findings: inflamed, non-perforated appendix Post-Operative Diagnosis: Same as Pre-op Surgeon: Montana Ramirez Anesthesiologist/CHART CLERK: Meche Erazo Anesthesia: General Specimens Removed: appendix Estimated Blood Loss (mls): 10 Operative Report Dictated: Yes
[2020-03-28] MEDS ORDERED: oxyCODONE HCL 5 MG TABLET PO PRN (13:49)
[2020-03-28] MEDS ORDERED: morphine SULFATE 4 MG/ML VIAL IVPB PRN (13:49)
[2020-03-28] MEDS ORDERED: ACETAMINOPHEN INJECTION 100 ML IVPB ONE (13:59)
[2020-03-28] MEDS ORDERED: EPHEDRINE SULFATE/0.9% NACL/PF 50 MG/10 ML SYRINGE NR ONE (14:01)
[2020-03-28] MEDS ORDERED: ONDANSETRON 4 MG/2 ML VIAL IVPUSH PRN (14:11)
[2020-03-28] MEDS ORDERED: LACTATED RINGERS SOLUTION 1,000 ML IV SCH (14:15)
[2020-03-28] MEDS ORDERED: NEOSTIGMINE METHYLSULFATE 0.5 MG/ML - 10 ML MDV ONE (14:23)
[2020-03-28] MEDS ORDERED: GLYCOPYRROLATE 0.2 MG/1 ML VIAL ONE (14:23)
[2020-03-28] MEDS ORDERED: DEXTROSE 5%-0.45% SALINE 1,000 ML IV SCH (15:15)
[2020-03-28] MEDS ORDERED: ACETAMINOPHEN 1000 MG/100 ML VIAL (NON FORMULARY) IVPB PRN (15:15)
--- NOTE | 2020-03-28 15:48 | PN ---
Progress Note (short form) - Note Progress Note: surgery s/p laparoscopic appendectomy. can likely be discharged tomorrow in morning off abx if tolerating liquids, ambulating, and voiding. no lifting for 2 weeks. ok to shower. regular diet at home. f/u in 2 weeks [phone]
[2020-03-28] MEDS: ACETAMINOPHEN 325 MG TABLET (FP) PO PRN (21:34)
[2020-03-28] MEDS ORDERED: metoPROLOL SUCCINATE 25 MG TAB.SR.24H (FP) PO SCH (22:00)
[2020-03-28] MEDS ORDERED: ATORVASTATIN CA 40 MG TABLET (FP) PO SCH (22:00)
[2020-03-29] MEDS ORDERED: PIPERACILLIN/TAZOBACTAM 3.375 GM VIAL IVPB ONE ×2 (02:13→08:51)
[2020-03-29] MEDS ORDERED: DEXTROSE 5%-WATER - 50 ML IVPB ONE ×2 (02:14→08:51)
[2020-03-29] MEDS: ACETAMINOPHEN 325 MG TABLET (FP) PO PRN ×2 (02:36→08:54)
[2020-03-29] MEDS: PIPERACILLIN/TAZOB 3.375 GM 3.375 GM in DEXTROSE 5%-WATER - 50 ML IVPB SCH ×2 (02:36→08:57)
[2020-03-29 02:52] LABS: URINE APPEARANCE CLEAR; URINE BILIRUBIN NEGATIVE (NEGATIVE); URINE COLOR YELLOW; URINE GLUCOSE (UA) NEGATIVE (NEGATIVE); URINE KETONE NEGATIVE (NEGATIVE); URINE LEUK ESTERASE NEGATIVE (NEGATIVE); URINE NITRITE NEGATIVE (NEGATIVE); URINE PROTEIN NEGATIVE (NEGATIVE); URINE UROBILINOGEN 0.2 mg/dL (0.2-1.0)
--- NOTE | 2020-03-29 09:12 | DS ---
Physical Examination Vital Signs: Vital Signs Temperature 98.2 F 03/29/20 06:13 Pulse Rate 76 03/29/20 06:13 Respiratory Rate 20 03/29/20 06:13 Blood Pressure 139/72 03/29/20 06:13 O2 Sat by Pulse Oximetry (%) 98 03/28/20 19:43 Cardiovascular: Yes: Regular Rate and Rhythm Respiratory: Yes: Regular, CTA Bilaterally Gastrointestinal: Yes: Normal Bowel Sounds, Soft Labs: CBC, BMP 03/28/20 07:44 03/28/20 07:44 Discharge Summary Problems reviewed: Yes Reason For Visit: APPENDICITIS Current Active Problems Abdominal pain (Acute) Acute appendicitis (Acute) Anxiety (Acute) Appendicitis (Acute) Gastritis (Acute) HLD (hyperlipidemia) (Acute) HTN (hypertension) (Acute) Hospital Course: - Problems (1) Abdominal pain Assessment/Plan: IV ABX SURGICAL AND ID CONSULTS Code(s): R10.9 - UNSPECIFIED ABDOMINAL PAIN Qualifiers: Abdominal location: lower abdomen, unspecified Qualified Code(s): R10.30 - Lower abdominal pain, unspecified (2) Acute appendicitis Assessment/Plan: ABOVE Operative Date: 03/28/20 Pre-Operative Diagnosis: acute appendicitis Operation: laparoscopic appendectomy, lavage Findings: inflamed, non-perforated appendix Post-Operative Diagnosis: Same as Pre-op Surgeon: Montana Ramirez Code(s): K35.80 - UNSPECIFIED ACUTE APPENDICITIS (3) HLD (hyperlipidemia) Assessment/Plan: LIPITOR Code(s): E78.5 - HYPERLIPIDEMIA, UNSPECIFIED (4) HTN (hypertension) Assessment/Plan: MONITOR ON LOPRESSOR Code(s): I10 - ESSENTIAL (PRIMARY) HYPERTENSION Condition: Stable - Instructions Referrals: Irma Danielson MD [Primary Care Provider] - 1 Week Disposition: HOME - Home Medications Comprehensive Discharge Medication List: Ambulatory Orders Atorvastatin Ca [Lipitor] 40 mg PO HS 11/09/11 Metoprolol Succinate [Toprol XL -] 25 mg PO HS 11/09/11 Norvasc 5 PO AM 11/09/11 Paroxetine HCl [Paxil -] 25 mg PO AM 11/09/11 Acetaminophen [Tylenol .Regular Strength -] 650 mg PO Q6H PRN tablet 03/29/20 Pantoprazole Sodium [Protonix -] 40 mg PO DAILY #30 tablet.ec 03/29/20 Paroxetine HCl [Paxil -] 20 mg PO DAILY tablet 03/29/20
[2020-03-29] MEDS ORDERED: PANTOPRAZOLE 40 MG TABLET PO SCH (10:00)
[2020-03-29] MEDS ORDERED: ENOXAPARIN NA (PORCINE) 40 MG/0.4 ML DISP.SYRIN SQ SCH (10:00)
[2020-03-29] MEDS ORDERED: PARoxetine HCL 20 MG TABLET PO SCH (10:00)
[2020-03-29 10:27] VITALS: BP 140/64; PULSE 62; TEMP 97.9
--- NOTE | 2020-03-29 12:09 | PN ---
Progress Note (short form) - Note Progress Note: surgery pt seen and examined. feels well. tolerating diet, ambulating, and voiding. afebrile abd- soft, nt, nd, incisions clean Plan- surgically stable for d/c. no abx or narcotics. f/u in 2 weeks. [phone] ok to shower, regular diet, no lifting,
--- NOTE | 2020-03-29 13:45 | OP ---
DATE OF OPERATION: 03/28/2020 PREOPERATIVE DIAGNOSIS: Acute appendicitis. POSTOPERATIVE DIAGNOSIS: Acute appendicitis. PROCEDURE: Laparoscopic appendectomy, lavage. SURGEON: Montana Ramirez DO MANGANESE BREAKER: None. ANESTHESIOLOGIST: Meche Erazo MD INTRAOPERATIVE FINDINGS: Thickened, inflamed, nonperforated appendix. BLOOD LOSS: Minimal. SPECIMEN: Appendix. DRAINS: None. DISPOSITION: Recovery room in stable condition. BRIEF HISTORY: This is a 79-year-old female who presented to [facility] with acute appendicitis. She was started on intravenous antibiotics and treated medically while we awaited results of COVID testing. They returned today around 12 noon, and she presents now for surgery. DESCRIPTION OF PROCEDURE: The patient was placed in a supine position. After general anesthesia was initiated, the abdomen was prepped and draped in sterile fashion. Albert catheter was inserted. A vertical incision was made infraumbilical with scalpel, used to go through skin and subcutaneous tissue. The fascia was lifted with a Dwain clamp, incised vertically, the peritoneum entered bluntly. A 0 Vicryl stitch was placed across the fascial defect and used to secure the Annika trocar. Pneumoperitoneum was then created, followed by insertion of 5-mm 30-degree laparoscope. Two 5-mm trocars were placed, one suprapubic and one in the left lower quadrant. Attention was turned toward the right lower quadrant. The appendix was seen. It was thickened and inflamed, with a small amount of exudate. A window was made at the space, the LigaSure lysis to divide the mesoappendix . The Endo CHANTE 60-mm purple load stapler was used to divide the appendix with a small portion of cecum in 1 firing. The staple line was inspected. It was intact. There was no bleeding, no breaks, no sign of ischemia. It was placed in a specimen bag, sent to pathology marked as specimen. At this point, limited lavage was done until return was clear. The trocars were removed under direct visualization. No bleeding was noted. The fascia of the infraumbilical trocar site was closed with multiple interrupted 0 Vicryl sutures, and the 3 skin incisions were closed with Biosyn. Dermabond dressing was placed. Overall, the patient tolerated procedure well. There were no complications. Albert catheter placed at the beginning of the operation was removed at the end. DO CANDIDO JONES/[id number] WMCHEALTHLeonela
--- NOTE | 2020-04-01 17:20 | PATH ---
Surgical Pathology Report Patient Name: MARCELINO, MARCH Med. Rec. #: [id number] /Age/Gender: 1940 (Age: 79) / F Account: [id number] Location: [facility] MED/SURG Taken: 03/28/2020 Received: 03/29/2020 Reported: 04/01/2020 Physicians: Pippa Shelley M.D. Specimen(s) Received APPENDIX Clinical History Appendicitis Final Diagnosis APPENDIX, APPENDECTOMY: ACUTE APPENDICITIS AND PERIAPPENDICITIS. Electronically Signed Allan Rendon M.D. Gross Description Received in formalin, labeled "appendix," is a 4 cm. in length vermiform appendix with a stapled margin of resection and moderate attached fat. The serosa is dave-gonzalez and smooth. Sectioning reveals an unremarkable lumen. The wall of the appendix averages 0.1 cm. in thickness. Abstracter sections are submitted in one cassette. /03/29/2020 saudi03/29/2020
== END 2020-03-29 12:28 | disposition home or self-care (01) | DRG 343 ==
LOC: JER 16:32 → JERBED 19:42 → J8W 23:34
PROVIDERS: ADMIT Internal Medicine; ATTEND Family Medicine
PROC: 0DTJ4ZZ Resection of Appendix, Percutaneous Endoscopic Approach (ICD-10-PCS; principal; 2020-03-28 13:00)
DX: K35.80 Unspecified acute appendicitis (principal); E78.5 Hyperlipidemia, unspecified; F41.9 Anxiety disorder, unspecified; I10 Essential (primary) hypertension; K29.70 Gastritis, unspecified, without bleeding; I71.4 Abdominal aortic aneurysm, without rupture
CPT/HCPCS: 36415; 71045-TC-FY; 74177-TC; 80053; 81003; 83605; 83690; 85025; 85610; 85730; 86850; 86900; 86901; 87040; 87086; 88304-TC; 93005; 93010; 94760; 99285-25; J0131; Q9967; U0003